=== PATIENT | male | born 1940 | race Caucasian/White ===

== ENCOUNTER 2017-01-12 08:30 | Day surgery (SDC) | payer OTHER ==
[2017-01-12] MEDS ORDERED: NS 500 ML IV 500 ML IV ONE (09:13)
[2017-01-12] MEDS ORDERED: TETRACAINE 0.5% OPHTH 1 DOSE AFFEYE ONE ×3 (09:45→11:43)
[2017-01-12] MEDS ORDERED: VIGAMOX 0.5% OPHTH 1 DOSE AFFEYE ONE ×4 (09:50→11:45)
[2017-01-12] MEDS ORDERED: PROLENSA OPHTH 1 DOSE AFFEYE ONE (10:01)
[2017-01-12] MEDS ORDERED: ALPHAGAN-P OPHTH 1 DOSE AFFEYE ONE (10:02)
[2017-01-12] MEDS ORDERED: CYCLOGYL 1% OPHTH 1 DOSE OP ONE ×3 (10:03→10:05)
[2017-01-12] MEDS ORDERED: MYDRIACIL OPHTH 1 DOSE AFFEYE ONE ×4 (10:03→11:36)
[2017-01-12] MEDS ORDERED: AK-DILATE 2.5% OPHTH 1 DOSE OP ONE ×3 (10:03→10:05)
[2017-01-12] MEDS ORDERED: BETADINE OPHTH SOLN 5% EACHEYE ONE (11:36)
[2017-01-12 14:26] VITALS: BP 142/71
== END 2017-01-12 12:30 | disposition home or self-care (01) | DRG 115 ==
LOC: SURG1 08:30
PROVIDERS: ATTEND Ophthalmology
PROC: 08BSXZZ Excision of Right Conjunctiva, External Approach (ICD-10-PCS; principal; 2017-01-12 15:45)
DX: H11.441 Conjunctival cysts, right eye (principal); D18.09 Hemangioma of other sites
CPT/HCPCS: 99100; A4217

== ENCOUNTER 2017-03-02 08:32 | Day surgery (SDC) | payer OTHER ==
[2017-03-02] MEDS ORDERED: TETRACAINE 0.5% OPHTH 1 DOSE AFFEYE ONE ×4 (09:17→13:08)
[2017-03-02] MEDS ORDERED: VIGAMOX 0.5% OPHTH 1 DOSE AFFEYE ONE ×5 (09:18→13:22)
[2017-03-02] MEDS ORDERED: PROLENSA OPHTH 1 DOSE AFFEYE ONE (09:29)
[2017-03-02] MEDS ORDERED: ALPHAGAN-P OPHTH 1 DOSE AFFEYE ONE (09:30)
[2017-03-02] MEDS ORDERED: AK-DILATE 2.5% OPHTH 1 DOSE OP ONE ×5 (09:31→09:35)
[2017-03-02] MEDS ORDERED: MYDRIACIL OPHTH 1 DOSE AFFEYE ONE ×5 (09:31→09:35)
[2017-03-02] MEDS ORDERED: CYCLOGYL 1% OPHTH 1 DOSE OP ONE ×5 (09:31→09:35)
[2017-03-02] MEDS ORDERED: NS 500 ML IV 500 ML IV ONE (09:36)
[2017-03-02] MEDS ORDERED: VERSED ONE (09:37)
[2017-03-02] MEDS ORDERED: DIPRIVAN VIAL ONE (09:37)
[2017-03-02] MEDS ORDERED: BETADINE OPHTH SOLN 5% EACHEYE ONE (12:58)
[2017-03-02] MEDS ORDERED: ADRENALINE CHL INJ IJ ONE ×2 (13:06→13:09)
[2017-03-02] MEDS ORDERED: XYLOCAINE-MPF 1% IJ ONE ×2 (13:06→13:09)
[2017-03-02] MEDS ORDERED: DUOVISC IO ONE ×2 (13:06→13:09)
[2017-03-02] MEDS ORDERED: BSS OPHTH (PLAIN) 500 ML with VANCOMYCIN HCL 500 MG VIAL 25 MG, ADRENALINE CHL INJ 1 MG IR ONE ×6 (13:09)
[2017-03-02 16:58] VITALS: BP 168/85
== END 2017-03-02 13:50 | disposition home or self-care (01) ==
LOC: SURG1 08:32
PROVIDERS: ATTEND Ophthalmology
PROC: 08DJ3ZZ Extraction of Right Lens, Percutaneous Approach (ICD-10-PCS; principal; 2017-03-02 15:30)
PROC: 08RJ3JZ Replacement of Right Lens with Synthetic Substitute, Percutaneous Approach (ICD-10-PCS; principal; 2017-03-02 15:30)
DX: H25.11 Age-related nuclear cataract, right eye (principal); H25.011 Cortical age-related cataract, right eye
CPT/HCPCS: 99100; A4217; J0170; J2250; J3370; J3490

== ENCOUNTER 2017-03-16 09:51 | Day surgery (SDC) | payer OTHER ==
[2017-03-16] MEDS: TETRACAINE 0.5% OPHTH 1 DOSE AFFEYE ONE ×3 (10:25→13:50)
[2017-03-16] MEDS: VIGAMOX 0.5% OPHTH 1 DOSE AFFEYE ONE ×5 (10:26→14:17)
[2017-03-16] MEDS: NS 1/2 1000 ML IV 500 ML IV ONE (10:33)
[2017-03-16] MEDS: PROLENSA OPHTH 1 DOSE AFFEYE ONE (10:37)
[2017-03-16] MEDS: ALPHAGAN-P OPHTH 1 DOSE AFFEYE ONE (10:38)
[2017-03-16] MEDS: AK-DILATE 2.5% OPHTH 1 DOSE OP ONE ×4 (10:39→10:42)
[2017-03-16] MEDS: MYDRIACIL OPHTH 1 DOSE AFFEYE ONE ×4 (10:39→10:42)
[2017-03-16] MEDS: CYCLOGYL 1% OPHTH 1 DOSE OP ONE ×4 (10:39→10:42)
[2017-03-16] MEDS: DUOVISC IO ONE (13:07)
[2017-03-16] MEDS: XYLOCAINE-MPF 1% IJ ONE (13:07)
[2017-03-16] MEDS: ADRENALINE CHL INJ IJ ONE (13:07)
[2017-03-16] MEDS: NS 500 ML IV 500 ML IV ONE (13:43)
[2017-03-16] MEDS: BETADINE OPHTH SOLN 5% EACHEYE ONE (13:50)
[2017-03-16] MEDS: BSS OPHTH (PLAIN) 500 ML IR ONE (14:07)
[2017-03-16 15:52] VITALS: BP 155/80
== END 2017-03-16 14:40 | disposition home or self-care (01) ==
LOC: SURG1 09:51
PROVIDERS: ATTEND Ophthalmology
PROC: 08RK3JZ Replacement of Left Lens with Synthetic Substitute, Percutaneous Approach (ICD-10-PCS; principal; 2017-03-16 17:45)
PROC: 08DK3ZZ Extraction of Left Lens, Percutaneous Approach (ICD-10-PCS; principal; 2017-03-16 17:45)
DX: H25.12 Age-related nuclear cataract, left eye (principal); H25.012 Cortical age-related cataract, left eye
CPT/HCPCS: 99100; A4217; J0170